=== PATIENT | male | born 1995 | race Caucasian/White ===

== ENCOUNTER 2018-08-04 05:21 | Emergency (ER) | payer BC, SELFPAY ==
--- NOTE | 2018-08-04 07:56 | RAD ---
PORTABLE CHEST: Date: 08/04/18 PROVIDED CLINICAL HISTORY: Dyspnea. FINDINGS: Cardiac and mediastinal silhouette is within normal limits. Lungs appear clear. No pleural fluid or p neumothorax apparent. IMPRESSION: No evidence for an acute cardiopulmonary process. POS: [facility]
[2018-08-04] MEDS ORDERED: Dexamethasone 10 MG/ML VIAL ONE (08:54)
== END 2018-08-04 10:03 | disposition home or self-care (01) ==
LOC: ERS 05:21
DX: J06.9 Acute upper respiratory infection, unspecified (principal); F41.9 Anxiety disorder, unspecified; F32.9 Major depressive disorder, single episode, unspecified; Z79.899 Other long term (current) drug therapy
CPT/HCPCS: 71045; 93005; 94640; 96361; 96374; J1100; J7620

== ENCOUNTER 2018-10-11 13:28 | Emergency (ER) | payer SELFPAY ==
[2018-10-11 14:11] LABS: #Basophils 0.2 thou/uL (0.0-0.2); #Eosinphils 0.2 thou/uL (0.0-0.7); #Lymphocytes 3.5 thou/uL (1.20-3.40); #Monocytes 0.9 thou/uL (0.11-0.59); #Neutrophils 9.1 thou/uL (1.40-6.50); %Basophils 1.1 % (0.0-1.0); %Eosinophils 1.3 % (0.0-10.0); %Lymphocytes 25.4 % (21.0-51.0); %Monocytes 6.8 % (0.0-10.0); %Neutrophils 65.5 % (42.0-75.0); Hemoglobin 16.7 g/dL (14.0-18.0); Mean Corpuscular HGB CONC 34.3 g/dL (32.0-36.0); Mean Corpuscular Hemoglobin 31.9 pg (27.0-31.0); Mean Corpuscular Volume 92.9 fL (78.0-98.0); Platelet Count 219 thou/uL (130-400); RBC Distribution Width 12.2 % (11.5-14.5); Red Blood Cell (RBC) Count 5.23 mill/uL (4.70-6.10); White Blood Cell (WBC) Count 13.9 thou/uL (4.8-10.8)
[2018-10-11] MEDS ORDERED: Mag-Al 1200 mg/1200 mg/30 ML UDCUP ONE (14:13)
[2018-10-11] MEDS ORDERED: Lidocaine Viscous Sol 2% 15 ml UD Cup ONE (14:13)
[2018-10-11 14:32] LABS: ALT (SGPT) 42 U/L (8-55); AST (SGOT) 28 U/L (5-34); Albumin 4.5 g/dL (3.5-5.0); Alkaline Phosphatase 85 U/L (40-150); Anion Gap 13 mmol/L (10-20); BUN (Urea Nitrogen) 9 mg/dL (8.9-20.6); Bilirubin, Total 0.7 mg/dL (0.2-1.2); Calc. Creatinine Clearance 0 mL/min (70-130); Carbon Dioxide 25 mmol/L (22-29); Chloride 106 mmol/L (98-107); Estimated GFR-MDRD Greater than 90; Glucose 102 mg/dL (70-105); Lipase 10 U/L (8-78); Potassium 3.9 mmol/L (3.5-5.1); Protein, Total 7.5 g/dL (6.0-8.3); Sodium 140 mmol/L (136-145)
--- NOTE | 2018-10-11 14:34 | RAD ---
EXAM: CHEST ONE VIEW: History: Chest pain. Difficulty breathing. Epigastric pain. Comparison: 08-04-18 FINDINGS: Heart size is within normal limits. The lungs are clear. No confluent pneumonia, overt edema, or pleu ral effusion. IMPRESSION: No acute intrathoracic disease. POS: [facility]
--- NOTE | 2018-10-13 21:47 | EKG ---
Test Reason : CHEST PAIN Blood Pressure : / mmHG Vent. Rate : 089 BPM Atrial Rate : 089 BPM P-R Int : 152 ms QRS Dur : 086 ms QT Int : 366 ms P-R-T Axes : 057 038 056 degrees QTc Int : 445 ms Normal sinus rhythm Normal ECG Confirmed by DONELL CARR ([id number]), editor index DARREN KELLOGG ([id number]) on 10/13/2018 9:46:42 PM Referred By: JERROD LOPEZ Confirmed By:DONELL CARR
== END 2018-10-11 15:17 | disposition home or self-care (01) ==
LOC: ERS 13:28
DX: R10.13 Epigastric pain (principal); F41.9 Anxiety disorder, unspecified; F32.9 Major depressive disorder, single episode, unspecified
CPT/HCPCS: 36415; 71045; 80053; 83690; 85025; 93005

== ENCOUNTER 2019-11-12 13:14 | Emergency (ER) | payer OTHER, SELFPAY ==
[2019-11-12 13:58] LABS: #Basophils 0.1 thou/uL (0.0-0.2); #Eosinphils 0.2 thou/uL (0.0-0.7); #Lymphocytes 3.2 thou/uL (1.20-3.40); #Monocytes 0.7 thou/uL (0.11-0.59); %Basophils 0.7 % (0.0-1.0); %Eosinophils 2.7 % (0.0-10.0); %Lymphocytes 35.1 % (21.0-51.0); %Monocytes 7.1 % (0.0-10.0); %Neutrophils 54.5 % (42.0-75.0); Hemoglobin 16.1 g/dL (14.0-18.0); Mean Corpuscular HGB CONC 34.5 g/dL (32.0-36.0); Mean Corpuscular Hemoglobin 32.7 pg (27.0-31.0); Mean Corpuscular Volume 94.9 fL (78.0-98.0); Mean Platelet Volume 7.5 fL (7.4-10.4); Platelet Count 224 thou/uL (130-400); RBC Distribution Width 12.7 % (11.5-14.5); Red Blood Cell (RBC) Count 4.91 mill/uL (4.70-6.10); White Blood Cell (WBC) Count 9.2 thou/uL (4.8-10.8)
--- NOTE | 2019-11-12 14:00 | RAD ---
RADIOGRAPH CHEST 1 VIEW: DATE: 11/12/2019 HISTORY: 24-year-old male with dyspnea FINDINGS: There are no airspace densities, pulmonary edema, pneumothorax, or cardiomegaly. The lateral costophr enic angles are sharp. IMPRESSION: No acute cardiopulmonary findings.
[2019-11-12 14:32] LABS: ALT (SGPT) 33 U/L (8-55); AST (SGOT) 28 U/L (5-34); Albumin 4.2 g/dL (3.5-5.0); Alkaline Phosphatase 89 U/L (40-110); Anion Gap 12 mmol/L (10-20); BUN (Urea Nitrogen) 9 mg/dL (8.9-20.6); Bilirubin, Total 0.9 mg/dL (0.2-1.2); CK (CPK) 246 U/L (30-200); Calc. Creatinine Clearance 0 mL/min (70-130); Calcium 9.5 mg/dL (7.8-10.44); Carbon Dioxide 28 mmol/L (22-29); Chloride 104 mmol/L (98-107); Estimated GFR-MDRD 89; Globulin 2.7 g/dL (2.4-3.5); Glucose 117 mg/dL (70-105); Potassium 3.9 mmol/L (3.5-5.1); Protein, Total 6.9 g/dL (6.0-8.3); Sodium 140 mmol/L (136-145)
[2019-11-13 10:11] LABS: SARS-CoV-2 MS2 Positive; SARS-CoV-2 N Gene Negative; SARS-CoV-2 S Gene Negative; SARS-CoV-2 orf1ab Negative
--- NOTE | 2019-11-13 14:24 | EKG ---
Test Reason : SOB Blood Pressure : / mmHG Vent. Rate : 083 BPM Atrial Rate : 092 BPM P-R Int : 150 ms QRS Dur : 086 ms QT Int : 376 ms P-R-T Axes : 066 046 055 degrees QTc Int : 441 ms Sinus rhythm with marked sinus arrhythmia Otherwise normal ECG Confirmed by LOLA LOPEZ, MATA ([id number]), business editor DARREN KELLOGG ([id number]) on 11/13/2019 2:23:40 PM Referred By: Confirmed By:MATA DAVILA MD
== END 2019-11-12 15:18 | disposition home or self-care (01) ==
LOC: ERS 13:14
DX: R06.02 Shortness of breath (principal); Z20.828 Contact with and (suspected) exposure to other viral communicable diseases; F41.9 Anxiety disorder, unspecified; F32.9 Major depressive disorder, single episode, unspecified
CPT/HCPCS: 36415; 71045; 80053; 82550; 83880; 84484; 85025; 85379; 87635; 93005; U0003

== ENCOUNTER 2019-11-15 23:40 | Emergency (ER) | payer OTHER, SELFPAY ==
[2019-11-16] MEDS ORDERED: Dexamethasone 10 MG/ML VIAL ONE (00:22)
[2019-11-16] MEDS ORDERED: Lorazepam 2 MG/ML VIAL ONE (00:22)
== END 2019-11-16 00:49 | disposition home or self-care (01) ==
LOC: ERS 23:40
DX: F41.9 Anxiety disorder, unspecified (principal); F32.9 Major depressive disorder, single episode, unspecified
CPT/HCPCS: 96372; 99283; J1100; J2060

== ENCOUNTER 2020-10-28 12:05 | Emergency (ER) | payer OTHER, SELFPAY ==
[2020-10-28 18:02] LABS: SARS-CoV-2 PCR by NAA Not Detected (NotDetected)
== END 2020-10-28 12:45 | disposition home or self-care (01) ==
LOC: ERS 12:05
DX: R05 Cough (principal); R50.9 Fever, unspecified; R43.9 Unspecified disturbances of smell and taste; M79.10 Myalgia, unspecified site; I10 Essential (primary) hypertension; Z20.822 Contact with and (suspected) exposure to COVID-19
CPT/HCPCS: 87635; 99283; U0003; U0005

== ENCOUNTER 2020-12-21 08:08 | Emergency (ER) | payer SELFPAY ==
[2020-12-21 14:34] LABS: SARS-CoV-2 PCR by NAA Not Detected (NotDetected)
== END 2020-12-21 08:47 | disposition home or self-care (01) ==
LOC: ERS 08:08
DX: R05 Cough (principal); Z20.822 Contact with and (suspected) exposure to COVID-19; I10 Essential (primary) hypertension
CPT/HCPCS: 99283; U0003; U0005